=== PATIENT | male | born 1945 | race Caucasian/White ===

== ENCOUNTER 2019-02-15 10:54 | Inpatient (IN) | payer MEDICARE, OTHER ==
[2019-02-15] VITALS (29 sets, daily range): BP systolic 104–172; BP diastolic 51–97
[~2019-02-15] VITALS: Ht 177.8 cm; Wt 83.1 kg
[2019-02-15 11:18] LABS: CLARITY,URINE CLEAR (Clear); COLOR,URINE STRAW (Yellow); GLUCOSE, URINE NEGATIVE (Neg); KETONES,URINE NEGATIVE (Neg); LEUKOCYTE ESTERASE ,URINE NEGATIVE (Neg); NITRITES, URINE NEGATIVE (Neg); OCCULT BLOOD,URINE TRACE-INTACT (Neg); PH,URINE 7.5 (4.8-8.0); PROTEIN,URINE 30 mg/dl (Neg); UROBILINOGEN,URINE 0.2 E.U/dL (0.2-1.0)
[2019-02-15 11:21] LABS: UA COLLECTION TYPE VOIDED
--- NOTE | 2019-02-15 11:21 | NUR ---
PT RETURNS FROM CT. STROKE NURSE WAITING, SAW THE PT BRIEFLY BEFORE HE WENT TO CT.
[2019-02-15 11:28] LABS: EOSINOPHILS # (AUTO) 0.2 X10'3 (0-0.9); NEUTROPHILS # (AUTO) 4.7 X10'3 (1.8-7.7)
[2019-02-15 11:30] LABS: ALANINE AMINOTRANSFERASE 34 U/L (12-78); ALBUMIN 4.5 G/DL (3.4-5.0); ALBUMIN/GLOBULIN RATIO 1.1 (1.1-1.5); ALKALINE PHOSPHATASE 133 IU/L (46-116); ANION GAP 11 (8-16); ASPARTATE AMINO TRANSFERASE 25 U/L (10-37); BILIRUBIN,TOTAL 0.7 MG/DL (0.1-1.0); BLOOD UREA NITROGEN 18 MG/DL (7-18); BUN/CREATININE RATIO 15.1 (5.4-32.0); CALCIUM 9.1 MG/DL (8.5-10.1); CHLORIDE 101 MMOL/L (99-107); CREATININE 1.19 MG/DL (0.60-1.10); GLUCOSE 147 MG/DL (70-104); MAGNESIUM 1.9 MG/DL (1.5-2.4); PHOSPHORUS 2.1 MG/DL (2.3-4.5); POTASSIUM 3.4 MMOL/L (3.5-5.1); SODIUM 140 MMOL/L (135-145); TOTAL CARBON DIOXIDE 27.9 MMOL/L (24-32); TOTAL PROTEIN 8.6 G/DL (6.4-8.2); eGFR 60 ML/MIN
[2019-02-15 11:33] LABS: HEMATOCRIT 52.7 % (42.0-52.0); HEMOGLOBIN 18.6 g/dl (14.0-17.9); MEAN CORPUSCULAR VOLUME 91.5 FL (78-98); RED BLOOD COUNT 5.75 X10'6 (4.70-6.10)
[2019-02-15 11:34] LABS: BASOPHILS % (AUTO) 0.6 % (0-1); EOSINOPHILS % (AUTO) 2.6 % (0-6); LYMPHOCYTES # (AUTO) 2.5 X10'3 (1.1-4.8); LYMPHOCYTES % (AUTO) 31.7 % (21-51); MEAN CORPUSCULAR HEMOGLOBIN 32.4 PG (27.0-31.0); MEAN CORPUSCULAR HGB CONC 35.4 g/dL (33.0-36.5); MEAN PLATELET VOLUME 8.6 FL (7.4-10.4); MONOCYTES # (AUTO) 0.5 X10'3 (0-0.9); MONOCYTES % (AUTO) 5.8 % (2-12); NEUTROPHILS % (AUTO) 59.3 % (42-75); RED CELL DISTRIBUTION WIDTH 12.9 % (11.5-14.5)
[2019-02-15] MEDS ORDERED: aspirin 325mg tablet PO ONE (11:35)
[2019-02-15 11:37] LABS: SQUAMOUS EPITHELIAL CELL,UR FEW /LPF (FEW)
[2019-02-15 11:38] LABS: BACTERIA,URINE FEW /HPF (Neg)
[2019-02-15 11:39] LABS: RBC,URINE 0-2 /HPF (0-2); WBC,URINE 0-4 /HPF (0-4)
[2019-02-15] MEDS ORDERED: iohexol 350MG/ML 100ml bottle IV ONE (11:58)
--- NOTE | 2019-02-15 12:00 | NUR ---
STROKE NURSE AT BEDSIDE RUNNING TPA AND DOCUMENTING VS.
[2019-02-15 12:18] LABS: TOTAL CELLS COUNTED 200
[2019-02-15 12:19] LABS: BASOPHILS % (MANUAL) 0 % (0-1)
[2019-02-15 12:20] LABS: PLATELET ESTIMATE NORMAL
[2019-02-15] MEDS ORDERED: normal saline 1000ml 1,000 ML IV ONE (13:10)
[2019-02-15] MEDS ORDERED: niCARDipine-NS 40mg/200ml IVPB 200 ML IV PRN (13:11)
[2019-02-15] MEDS ORDERED: AMLO10TA13 PO (13:19)
[2019-02-15] MEDS ORDERED: ASPI-611 PO (13:26)
[2019-02-15] MEDS ORDERED: OMEP-50 PO (13:27)
[2019-02-15] MEDS ORDERED: LEVO75TA7 PO (13:34)
[2019-02-15] MEDS ORDERED: METO50TA16 PO (13:34)
[2019-02-15] MEDS ORDERED: CITA20TA28 PO (13:34)
[2019-02-15] MEDS ORDERED: VALS320T17 PO (13:34)
[2019-02-15] MEDS ORDERED: CLOP75TA35 PO (13:34)
[2019-02-15] MEDS ORDERED: OXYC-511 PO (13:34)
[2019-02-15] MEDS ORDERED: FLUT16SP20 NAS (13:34)
[2019-02-15] MEDS ORDERED: POTA10CA44 PO (13:34)
--- NOTE | 2019-02-15 14:16 | NUR ---
STROKE: Responded to stroke alert at 1100. On first assessment, immediately prior to CT scan, patient is A/O and has minimal impairment to the fine motor function of the right hand. Denies alteration in sensation. No drift. Following CT scan, at 1120, neuro exam reveals right arm drfit to bed after 5 seconds, flaccid R wrist, and numbness to the upper arm. slight droop to right mouth. Decision to give TPA following exam with Teleneurology and ER MD, risks and benefits reveiwed with pt. Bolus given with 2 RN check at 1148. Improvement in stroke symptoms noted after approximately 30 minutes. See TPA/neuro flow sheets.
[2019-02-15] MEDS ORDERED: ondansetron/PF 4mg/2ml inj IV ONE (14:25)
[2019-02-15] MEDS ORDERED: morphine 4 MG/ML inj SYRINge IV ONE (14:25)
[2019-02-15] MEDS: K, MAG and/or Phos replacement - Verify level? MC SCH (17:10)
[2019-02-15] MEDS ORDERED: magnesium hydroxide 30ml (MOM) UD suspension PO PRN (17:10)
[2019-02-15] MEDS: fluticasone nasal spray 16GM bottle NS SCH (17:10)
[2019-02-15] MEDS ORDERED: ondansetron/PF 4mg/2ml inj IV PRN (17:10)
[2019-02-15] MEDS ORDERED: acetaminophen 325mg tablet PO PRN ×2 (17:10)
[2019-02-15] MEDS ORDERED: morphine 4 MG/ML inj SYRINge IV PRN (17:10)
[2019-02-15] MEDS: clopidogrel 75mg tablet PO SCH (17:10)
[2019-02-15] MEDS ORDERED: potassium Cl 20 mEq SR tablet PO PRN (17:10)
[2019-02-15] MEDS ORDERED: morphine 2 MG/ML inj. syringe IV PRN (17:10)
[2019-02-15 17:14] LABS: PLATELET COUNT 213 X10'3 (140-440)
--- NOTE | 2019-02-15 17:52 | NUR ---
pt arrived to floor via gurney. pt oriented to room and call light. VS 168/102 HR 99. restarted pt on cardene at 5mg/hr. will continue to monitor.
--- NOTE | 2019-02-15 18:20 | NUR ---
Patient in room CICU 2011. I have received report and had the opportunity to ask questions and assume patient care.
[2019-02-15] MEDS: oxyCODONE/APAP 10/325mg tablet PO PRN (18:25)
[2019-02-15] MEDS: normal saline 1000ml 1,000 ML IV SCH (18:28)
--- NOTE | 2019-02-15 18:41 | NUR ---
Patient report given, questions answered & plan of care reviewed with Loretta REED.
--- NOTE | 2019-02-15 19:08 | NUR ---
pt has plavix ordered for a give at 1710. pt takes plavix at home and home medications were continued. pt received TPA earlier in the day and is at high risk for bleeding. SAMUEL Boyle called for medication clarification. [place] ordered to hold plavix for tonight and resume medication tomorrow.
[2019-02-15] MEDS: citalopram 20mg tablet PO SCH (19:42)
[2019-02-15] MEDS: metoprolol tartrate 50mg tablet PO SCH (19:42)
--- NOTE | 2019-02-15 23:00 | NUR ---
PT REQUESTED ATIVAN BEFORE PLACING THE CPAP ON HIM. ATIVAN ADMINISTERED.
[2019-02-15] MEDS: LORazepam 0.5 MG tablet PO PRN (23:23)
[2019-02-16] VITALS (33 sets, daily range): BP systolic 119–165; BP diastolic 55–99
--- NOTE | 2019-02-16 00:15 | NUR ---
PT 12 HR TROPONIN CAME BACK AT 9.47. NOTIFIED. 12 LEAD EKG ORDERED, TROPONIN ORDERED FOR 0300, SAID HE WOULD ORDER A CARDIOLOGY CONSULT
--- NOTE | 2019-02-16 00:36 | NUR ---
EKG COMPLETE. EKG READ BY MD ORTIZ IN ER. NOTED FLAT T WAVES IN LEADS III, V3,V4 THE. SAMUEL NOGUEIRA NOTIFIED Addendum: 02/16/19 at 0039 by Loretta Tadeo RN EKG COMPLETE. EKG READ BY MD ORTIZ IN ER. NOTED FLAT T WAVES IN LEADS III, V3,V4 WHICH WERE NOT PRESENT COMPARED TO THE PREVIOUS EKG. SAMUEL NOGUEIRA NOTIFIED
[2019-02-16 05:49] LABS: PARTIAL THROMBOPLASTIN TIME 26 SECONDS (22-32)
[2019-02-16 05:50] LABS: BASOPHILS % (AUTO) 0.3 % (0-1); EOSINOPHILS # (AUTO) 0.1 X10'3 (0-0.9); EOSINOPHILS % (AUTO) 0.7 % (0-6); HEMATOCRIT 46.7 % (42.0-52.0); HEMOGLOBIN 16.5 g/dl (14.0-17.9); LYMPHOCYTES # (AUTO) 2.1 X10'3 (1.1-4.8); LYMPHOCYTES % (AUTO) 20.3 % (21-51); MEAN CORPUSCULAR HEMOGLOBIN 32.3 PG (27.0-31.0); MEAN CORPUSCULAR HGB CONC 35.3 g/dL (33.0-36.5); MEAN CORPUSCULAR VOLUME 91.4 FL (78-98); MEAN PLATELET VOLUME 8.9 FL (7.4-10.4); MONOCYTES # (AUTO) 0.9 X10'3 (0-0.9); MONOCYTES % (AUTO) 8.9 % (2-12); NEUTROPHILS # (AUTO) 7.4 X10'3 (1.8-7.7); NEUTROPHILS % (AUTO) 69.8 % (42-75); PLATELET COUNT 201 X10'3 (140-440); RED CELL DISTRIBUTION WIDTH 13.2 % (11.5-14.5); WHITE BLOOD COUNT 10.6 X10'3 (4.5-11.0)
[2019-02-16 05:53] LABS: ALANINE AMINOTRANSFERASE 36 U/L (12-78); ALBUMIN 3.7 G/DL (3.4-5.0); ALBUMIN/GLOBULIN RATIO 1.1 (1.1-1.5); ALKALINE PHOSPHATASE 106 IU/L (46-116); ANION GAP 7 (8-16); ASPARTATE AMINO TRANSFERASE 80 U/L (10-37); BILIRUBIN,TOTAL 0.7 MG/DL (0.1-1.0); BLOOD UREA NITROGEN 24 MG/DL (7-18); BUN/CREATININE RATIO 20.3 (5.4-32.0); CALCIUM 8.9 MG/DL (8.5-10.1); CHLORIDE 104 MMOL/L (99-107); CREATININE 1.18 MG/DL (0.60-1.10); GLUCOSE 115 MG/DL (70-104); POTASSIUM 3.5 MMOL/L (3.5-5.1); SODIUM 139 MMOL/L (135-145); TOTAL CARBON DIOXIDE 28.4 MMOL/L (24-32); TOTAL PROTEIN 7.2 G/DL (6.4-8.2); eGFR 61 ML/MIN
[2019-02-16 05:57] LABS: LDL CHOLESTEROL 112 MG/DL (50-100)
[2019-02-16 06:03] LABS: TROPONIN I 11.56 NG/ML (0.0-0.05)
--- NOTE | 2019-02-16 06:16 | NUR ---
Patient in room CICU 2011. I have received report from Loretta REED and had the opportunity to ask questions and assume patient care.
[2019-02-16] MEDS: normal saline 1000ml 1,000 ML IV SCH ×2 (07:53→20:52)
[2019-02-16] MEDS: pantoprazole 40 MG vial IV SCH (07:53)
[2019-02-16] MEDS: oxyCODONE/APAP 10/325mg tablet PO PRN ×2 (07:54→17:15)
[2019-02-16] MEDS: levoTHYROXINE 75mcg tablet PO SCH (07:54)
[2019-02-16] MEDS: metoprolol tartrate 50mg tablet PO SCH ×2 (07:54→20:52)
[2019-02-16] MEDS: clopidogrel 75mg tablet PO SCH (08:00)
[2019-02-16] MEDS: K, MAG and/or Phos replacement - Verify level? MC SCH (08:00)
[2019-02-16] MEDS: fluticasone nasal spray 16GM bottle NS SCH (08:12)
[2019-02-16] MEDS: citalopram 20mg tablet PO SCH (08:12)
[2019-02-16] MEDS ORDERED: FLU VACC QS2019-20 36MOS UP/PF 60 MCG/0.5 ML SYRINGE IMVAC ONE (10:00)
[2019-02-16] MEDS ORDERED: pneumococcal 23-VAL P-sac vacc 25 mcg/0.5ml vial IMVAC ONE (10:00)
[2019-02-16] MEDS ORDERED: NORepinephrine 8mg/ 250ml NS 250 ML IV SCH (11:10)
--- NOTE | 2019-02-16 12:36 | NUR ---
Discussed patient with Dr Leonardo, neuroassessment is good, maintaining bp 120 to 130 troponins elevated,cardiology consult today.will do head ct today and do follow up neurotelemedicine today.
[2019-02-16] MEDS: LORazepam 0.5 MG tablet PO PRN (17:18)
--- NOTE | 2019-02-16 18:25 | NUR ---
Patient in room CICU 2011. I have received report and had the opportunity to ask questions and assume patient care.
--- NOTE | 2019-02-16 19:06 | NUR ---
Problems reprioritized. Patient report given, questions answered & plan of care reviewed with Loretta REED.
--- NOTE | 2019-02-16 19:26 | NUR ---
specialist cotton weigher contacted for 24 hour post tpa follow up consult. paperwork faxed to specialist cotton weigher.
[2019-02-17] VITALS (19 sets, daily range): BP systolic 115–163; BP diastolic 63–102
--- NOTE | 2019-02-17 00:50 | NUR ---
specialist parking regulation enforcement officer evaluated pt. report placed in chart
--- NOTE | 2019-02-17 03:43 | NUR ---
pt blood pressure jumped from 150 systolic to 180-190 systolic. blood pressure cuff changed and blood pressure taken on both arms. systolic bp remains 108-190. ilya simmons notified. order received for 10 mg hydralazine q6h prn high bp. will continue to monitor.
[2019-02-17] MEDS ORDERED: hydrALAZINE 20mg/ml inj. IV PRN (03:45)
[2019-02-17 05:50] LABS: EOSINOPHILS # (AUTO) 0.3 X10'3 (0-0.9); HEMOGLOBIN 16.3 g/dl (14.0-17.9); MONOCYTES # (AUTO) 0.8 X10'3 (0-0.9); NEUTROPHILS # (AUTO) 6.3 X10'3 (1.8-7.7); WHITE BLOOD COUNT 9.5 X10'3 (4.5-11.0)
[2019-02-17 05:51] LABS: PARTIAL THROMBOPLASTIN TIME 26 SECONDS (22-32)
[2019-02-17 05:52] LABS: BASOPHILS % (AUTO) 0.3 % (0-1); EOSINOPHILS % (AUTO) 3.3 % (0-6); HEMATOCRIT 46.4 % (42.0-52.0); LYMPHOCYTES % (AUTO) 21.5 % (21-51); MEAN CORPUSCULAR HEMOGLOBIN 32.3 PG (27.0-31.0); MEAN CORPUSCULAR HGB CONC 35.1 g/dL (33.0-36.5); MEAN CORPUSCULAR VOLUME 92.1 FL (78-98); MEAN PLATELET VOLUME 8.7 FL (7.4-10.4); MONOCYTES % (AUTO) 8.2 % (2-12); NEUTROPHILS % (AUTO) 66.7 % (42-75); PLATELET COUNT 181 X10'3 (140-440); RED BLOOD COUNT 5.04 X10'6 (4.70-6.10); RED CELL DISTRIBUTION WIDTH 13.1 % (11.5-14.5)
[2019-02-17 05:56] LABS: ALANINE AMINOTRANSFERASE 41 U/L (12-78); ALBUMIN 3.6 G/DL (3.4-5.0); ALBUMIN/GLOBULIN RATIO 1.1 (1.1-1.5); ALKALINE PHOSPHATASE 106 IU/L (46-116); ANION GAP 6 (8-16); ASPARTATE AMINO TRANSFERASE 85 U/L (10-37); BILIRUBIN,TOTAL 0.4 MG/DL (0.1-1.0); BLOOD UREA NITROGEN 19 MG/DL (7-18); BUN/CREATININE RATIO 17.1 (5.4-32.0); CALCIUM 8.9 MG/DL (8.5-10.1); CHLORIDE 106 MMOL/L (99-107); CREATININE 1.11 MG/DL (0.60-1.10); GLUCOSE 119 MG/DL (70-104); POTASSIUM 3.6 MMOL/L (3.5-5.1); SODIUM 142 MMOL/L (135-145); TOTAL CARBON DIOXIDE 30.5 MMOL/L (24-32); TOTAL PROTEIN 6.9 G/DL (6.4-8.2); eGFR 65 ML/MIN
[2019-02-17 06:08] LABS: TROPONIN I 9.96 NG/ML (0.0-0.05)
--- NOTE | 2019-02-17 06:17 | NUR ---
Patient in room CICU 2011. I have received report from Loretta REED and had the opportunity to ask questions and assume patient care.
[2019-02-17] MEDS: pantoprazole 40 MG vial IV SCH (07:57)
[2019-02-17] MEDS: levoTHYROXINE 75mcg tablet PO SCH (07:58)
[2019-02-17] MEDS: K, MAG and/or Phos replacement - Verify level? MC SCH (08:00)
[2019-02-17] MEDS: citalopram 20mg tablet PO SCH (08:02)
[2019-02-17] MEDS: clopidogrel 75mg tablet PO SCH (08:02)
[2019-02-17] MEDS: aspirin 81mg tab.chew PO SCH (08:02)
[2019-02-17] MEDS: metoprolol tartrate 50mg tablet PO SCH ×2 (08:02→20:49)
[2019-02-17] MEDS: oxyCODONE/APAP 10/325mg tablet PO PRN ×2 (08:04→22:24)
[2019-02-17] MEDS: fluticasone nasal spray 16GM bottle NS SCH (08:07)
[2019-02-17] MEDS: normal saline 1000ml 1,000 ML IV SCH (11:26)
[2019-02-17] MEDS: atorvastatin 20mg tablet PO SCH (11:32)
[2019-02-17] MEDS: LORazepam 0.5 MG tablet PO PRN (14:30)
--- NOTE | 2019-02-17 14:42 | NUR ---
Patient in room CICU 2011. I have received report from Cherri REED and had the opportunity to ask questions and assume patient care.
--- NOTE | 2019-02-17 14:43 | NUR ---
patient will head to MRI then up to the ortho/neuro floor per Cherri REED.
--- NOTE | 2019-02-17 14:45 | NUR ---
pt report called to Ashwin REED; all questions answered.
--- NOTE | 2019-02-17 15:00 | NUR ---
pt to MRI and then to Neuro floor.
--- NOTE | 2019-02-17 15:21 | NUR ---
Problems reprioritized. Patient report given, questions answered & plan of care reviewed with Jermaine REED.
--- NOTE | 2019-02-17 15:22 | NUR ---
Patient in room CICU 2011. I have received report from BRIANNA Christopher and had the opportunity to ask questions and assume patient care.
--- NOTE | 2019-02-17 16:00 | NUR ---
pt MRI to room 4011.
--- NOTE | 2019-02-17 18:23 | NUR ---
Problems reprioritized. Patient report given, questions answered & plan of care reviewed with BRIANNA Mayorga.
[2019-02-18] MEDS: normal saline 1000ml 1,000 ML IV SCH ×3 (01:34→13:52)
[2019-02-18 02:00] VITALS: BP 165/100
[2019-02-18 03:38] LABS: BASOPHILS % (AUTO) 0.4 % (0-1); EOSINOPHILS # (AUTO) 0.4 X10'3 (0-0.9); EOSINOPHILS % (AUTO) 4.2 % (0-6); HEMOGLOBIN 15.6 g/dl (14.0-17.9); LYMPHOCYTES # (AUTO) 2.3 X10'3 (1.1-4.8); LYMPHOCYTES % (AUTO) 24.2 % (21-51); MEAN CORPUSCULAR HEMOGLOBIN 31.9 PG (27.0-31.0); MEAN CORPUSCULAR HGB CONC 34.8 g/dL (33.0-36.5); MEAN CORPUSCULAR VOLUME 91.8 FL (78-98); MEAN PLATELET VOLUME 8.4 FL (7.4-10.4); MONOCYTES # (AUTO) 0.7 X10'3 (0-0.9); MONOCYTES % (AUTO) 7.1 % (2-12); NEUTROPHILS # (AUTO) 6.2 X10'3 (1.8-7.7); NEUTROPHILS % (AUTO) 64.1 % (42-75); PLATELET COUNT 190 X10'3 (140-440); RED CELL DISTRIBUTION WIDTH 12.9 % (11.5-14.5); WHITE BLOOD COUNT 9.6 X10'3 (4.5-11.0)
[2019-02-18 03:48] LABS: PARTIAL THROMBOPLASTIN TIME 26 SECONDS (22-32)
[2019-02-18 03:59] LABS: ALANINE AMINOTRANSFERASE 37 U/L (12-78); ALBUMIN 3.4 G/DL (3.4-5.0); ALKALINE PHOSPHATASE 99 IU/L (46-116); ANION GAP 5 (8-16); ASPARTATE AMINO TRANSFERASE 57 U/L (10-37); BILIRUBIN,TOTAL 0.5 MG/DL (0.1-1.0); BLOOD UREA NITROGEN 19 MG/DL (7-18); BUN/CREATININE RATIO 17.4 (5.4-32.0); CALCIUM 8.3 MG/DL (8.5-10.1); CHLORIDE 106 MMOL/L (99-107); CREATININE 1.09 MG/DL (0.60-1.10); GLUCOSE 115 MG/DL (70-104); POTASSIUM 3.4 MMOL/L (3.5-5.1); SODIUM 142 MMOL/L (135-145); TOTAL CARBON DIOXIDE 30.6 MMOL/L (24-32); TOTAL PROTEIN 6.9 G/DL (6.4-8.2); eGFR 66 ML/MIN
[2019-02-18 04:01] LABS: TROPONIN I 7.17 NG/ML (0.0-0.05)
[2019-02-18 06:00] VITALS: BP 153/97
--- NOTE | 2019-02-18 06:05 | NUR ---
Patient in room ORTHO 4011. I have received report from HERMAN REED and had the opportunity to ask questions and assume patient care.
[2019-02-18] MEDS: K, MAG and/or Phos replacement - Verify level? MC SCH (07:51)
[2019-02-18] MEDS: atorvastatin 20mg tablet PO SCH (07:59)
[2019-02-18] MEDS: clopidogrel 75mg tablet PO SCH (07:59)
[2019-02-18] MEDS: pantoprazole 40mg Tablet.DR PO SCH (07:59)
[2019-02-18] MEDS: levoTHYROXINE 75mcg tablet PO SCH (07:59)
[2019-02-18] MEDS: aspirin 81mg tab.chew PO SCH (07:59)
[2019-02-18] MEDS: potassium Cl 20 mEq SR tablet PO PRN ×3 (08:00→17:21)
[2019-02-18] MEDS: citalopram 20mg tablet PO SCH (08:00)
[2019-02-18] MEDS: fluticasone nasal spray 16GM bottle NS SCH (08:00)
[2019-02-18] MEDS: metoprolol tartrate 50mg tablet PO SCH ×2 (08:09→20:48)
[2019-02-18] MEDS: oxyCODONE/APAP 10/325mg tablet PO PRN ×2 (09:07→20:48)
[2019-02-18 10:05] VITALS: BP 143/83
--- NOTE | 2019-02-18 17:47 | NUR ---
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
[2019-02-18 18:00] VITALS: BP 148/75
--- NOTE | 2019-02-18 18:05 | NUR ---
Problems reprioritized. Patient report given, questions answered & plan of care reviewed with GUIDO REED.
--- NOTE | 2019-02-18 18:15 | NUR ---
Patient in room ORTHO 4011. I have received report from BRIANNA Krishnamurthy and had the opportunity to ask questions and assume patient care.
[2019-02-18 20:54] VITALS: BP 143/91
[2019-02-18 22:00] VITALS: BP 161/110
[2019-02-19] VITALS (7 sets, daily range): BP systolic 134–188; BP diastolic 76–100
[2019-02-19] MEDS: normal saline 1000ml 1,000 ML IV SCH (03:10)
[2019-02-19 06:31] LABS: BASOPHILS % (AUTO) 0.4 % (0-1); EOSINOPHILS # (AUTO) 0.4 X10'3 (0-0.9); EOSINOPHILS % (AUTO) 4.7 % (0-6); HEMATOCRIT 44.9 % (42.0-52.0); HEMOGLOBIN 15.9 g/dl (14.0-17.9); LYMPHOCYTES # (AUTO) 2.3 X10'3 (1.1-4.8); MEAN CORPUSCULAR HEMOGLOBIN 32.5 PG (27.0-31.0); MEAN CORPUSCULAR HGB CONC 35.3 g/dL (33.0-36.5); MEAN CORPUSCULAR VOLUME 92.1 FL (78-98); MEAN PLATELET VOLUME 8.5 FL (7.4-10.4); MONOCYTES # (AUTO) 0.6 X10'3 (0-0.9); MONOCYTES % (AUTO) 7.9 % (2-12); NEUTROPHILS # (AUTO) 4.9 X10'3 (1.8-7.7); PLATELET COUNT 183 X10'3 (140-440); RED BLOOD COUNT 4.87 X10'6 (4.70-6.10); RED CELL DISTRIBUTION WIDTH 12.8 % (11.5-14.5); WHITE BLOOD COUNT 8.3 X10'3 (4.5-11.0)
[2019-02-19 06:38] LABS: PARTIAL THROMBOPLASTIN TIME 26 SECONDS (22-32)
--- NOTE | 2019-02-19 06:48 | NUR ---
Problems reprioritized. Patient report given, questions answered & plan of care reviewed with BRIANNA Dubois.
[2019-02-19 06:51] LABS: ALANINE AMINOTRANSFERASE 35 U/L (12-78); ALBUMIN 3.5 G/DL (3.4-5.0); ALKALINE PHOSPHATASE 108 IU/L (46-116); ANION GAP 5 (8-16); ASPARTATE AMINO TRANSFERASE 35 U/L (10-37); BILIRUBIN,TOTAL 0.5 MG/DL (0.1-1.0); BLOOD UREA NITROGEN 20 MG/DL (7-18); BUN/CREATININE RATIO 17.5 (5.4-32.0); CALCIUM 8.8 MG/DL (8.5-10.1); CHLORIDE 107 MMOL/L (99-107); CREATININE 1.14 MG/DL (0.60-1.10); GLUCOSE 104 MG/DL (70-104); POTASSIUM 4.2 MMOL/L (3.5-5.1); SODIUM 143 MMOL/L (135-145); TOTAL CARBON DIOXIDE 31.5 MMOL/L (24-32); TOTAL PROTEIN 6.9 G/DL (6.4-8.2); eGFR 63 ML/MIN
[2019-02-19] MEDS: K, MAG and/or Phos replacement - Verify level? MC SCH (08:00)
[2019-02-19] MEDS: fluticasone nasal spray 16GM bottle NS SCH (08:00)
[2019-02-19] MEDS: atorvastatin 20mg tablet PO SCH (09:30)
[2019-02-19] MEDS: clopidogrel 75mg tablet PO SCH (09:30)
[2019-02-19] MEDS: oxyCODONE/APAP 10/325mg tablet PO PRN ×2 (09:30→17:48)
[2019-02-19] MEDS: levoTHYROXINE 75mcg tablet PO SCH (09:30)
[2019-02-19] MEDS: aspirin 81mg tab.chew PO SCH (09:30)
[2019-02-19] MEDS: pantoprazole 40mg Tablet.DR PO SCH (09:30)
[2019-02-19] MEDS: citalopram 20mg tablet PO SCH (09:30)
[2019-02-19] MEDS: metoprolol tartrate 50mg tablet PO SCH ×2 (09:32→19:46)
--- NOTE | 2019-02-19 17:42 | NUR ---
gave prn hydralazine for manual bp 180/90.
--- NOTE | 2019-02-19 18:30 | NUR ---
Patient in room ORTHO 4011. I have received report from YAQUELIN REED and had the opportunity to ask questions and assume patient care.
[2019-02-19] MEDS ORDERED: nitroGLYCERIN 0.4mg SUBLingual tab SL PRN (19:00)
[2019-02-20] VITALS (12 sets, daily range): BP systolic 103–158; BP diastolic 57–95
[2019-02-20] MEDS: oxyCODONE/APAP 10/325mg tablet PO PRN (01:01)
[2019-02-20 05:18] LABS: BASOPHILS # (AUTO) 0.1 X10'3 (0-0.2); BASOPHILS % (AUTO) 1.1 % (0-1); EOSINOPHILS # (AUTO) 0.3 X10'3 (0-0.9); EOSINOPHILS % (AUTO) 3.9 % (0-6); HEMATOCRIT 44.3 % (42.0-52.0); HEMOGLOBIN 15.8 g/dl (14.0-17.9); LYMPHOCYTES # (AUTO) 2.5 X10'3 (1.1-4.8); LYMPHOCYTES % (AUTO) 29.4 % (21-51); MEAN CORPUSCULAR HEMOGLOBIN 32.4 PG (27.0-31.0); MEAN CORPUSCULAR HGB CONC 35.7 g/dL (33.0-36.5); MEAN CORPUSCULAR VOLUME 90.8 FL (78-98); MEAN PLATELET VOLUME 8.9 FL (7.4-10.4); MONOCYTES # (AUTO) 0.6 X10'3 (0-0.9); MONOCYTES % (AUTO) 6.8 % (2-12); NEUTROPHILS % (AUTO) 58.8 % (42-75); PLATELET COUNT 203 X10'3 (140-440); RED BLOOD COUNT 4.88 X10'6 (4.70-6.10); WHITE BLOOD COUNT 8.5 X10'3 (4.5-11.0)
[2019-02-20 05:28] LABS: PARTIAL THROMBOPLASTIN TIME 26 SECONDS (22-32)
[2019-02-20 05:31] LABS: ALANINE AMINOTRANSFERASE 33 U/L (12-78); ALBUMIN 3.5 G/DL (3.4-5.0); ALKALINE PHOSPHATASE 118 IU/L (46-116); ANION GAP 8 (8-16); ASPARTATE AMINO TRANSFERASE 23 U/L (10-37); BILIRUBIN,TOTAL 0.4 MG/DL (0.1-1.0); CALCIUM 8.7 MG/DL (8.5-10.1); CHLORIDE 107 MMOL/L (99-107); CREATININE 1.08 MG/DL (0.60-1.10); GLUCOSE 114 MG/DL (70-104); POTASSIUM 3.6 MMOL/L (3.5-5.1); SODIUM 144 MMOL/L (135-145); eGFR 67 ML/MIN
[2019-02-20 05:41] LABS: BLOOD UREA NITROGEN 21 MG/DL (7-18); BUN/CREATININE RATIO 19.4 (5.4-32.0)
--- NOTE | 2019-02-20 06:30 | NUR ---
Patient in room ORTHO 4011A. I have received report from Ami REED and had the opportunity to ask questions and assume patient care.
--- NOTE | 2019-02-20 06:32 | NUR ---
Problems reprioritized. Patient report given, questions answered & plan of care reviewed with ALIZE REED.
--- NOTE | 2019-02-20 07:00 | NUR ---
Patient in room MED 315. I have received report from BRIANNA Hawkins and had the opportunity to ask questions and assume patient care.
--- NOTE | 2019-02-20 07:03 | NUR ---
Report called to Elvia REED on [facility]. Patient to transfer to room 315. Report given, all questions answered
--- NOTE | 2019-02-20 07:20 | NUR ---
Patient transferred to room 315. All belongings sent with patient, report given to Elvia REED. Tele monitor returned to tele office.
--- NOTE | 2019-02-20 07:25 | NUR ---
Pt arrived on [facility] in , all personal belongings are with pt.
[2019-02-20 07:49] LABS: PLATELET FUNCTION (ADP) 82 SECONDS (63-104)
[2019-02-20] MEDS: K, MAG and/or Phos replacement - Verify level? MC SCH (08:00)
[2019-02-20] MEDS: fluticasone nasal spray 16GM bottle NS SCH (08:00)
[2019-02-20] MEDS: citalopram 20mg tablet PO SCH (08:12)
[2019-02-20] MEDS: pantoprazole 40mg Tablet.DR PO SCH (08:12)
[2019-02-20] MEDS: metoprolol tartrate 50mg tablet PO SCH (08:13)
[2019-02-20] MEDS: levoTHYROXINE 75mcg tablet PO SCH (08:13)
[2019-02-20] MEDS: clopidogrel 75mg tablet PO SCH (08:13)
[2019-02-20] MEDS: aspirin 81mg tab.chew PO SCH (08:14)
[2019-02-20] MEDS ORDERED: midazolam 2 mg/2 ml injection ONE (10:39)
[2019-02-20] MEDS ORDERED: iohexol 350MG/ML 100ml bottle IV ONE (10:39)
[2019-02-20] MEDS ORDERED: fentaNYL/PF 50MCG/1 ML 2ML syringe ONE (10:39)
[2019-02-20] MEDS ORDERED: LIDOcaine 1% (10mg/ml)w/preservative injection 20ml MDV ONE (10:39)
[2019-02-20] MEDS ORDERED: iohexol 350 MG/ML 50ML vial IV ONE (10:39)
[2019-02-20] MEDS: normal saline 1000ml 1,000 ML IV SCH ×2 (10:48→20:25)
--- NOTE | 2019-02-20 10:50 | NUR ---
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 No noted stress.
[2019-02-20] MEDS ORDERED: nitroGLYCERIN-Tridil 50MG/D5W 250 ML IV ONE (11:17)
--- NOTE | 2019-02-20 11:29 | NUR ---
Patient admitted with severe HTN, is now s/p heart cath. Has heart healthy diet with mechanical soft chop all texture. Eating well, average PO intake is 75-100% of meals and is meeting nutrition needs. No nutrition concerns at this time. Will continue to follow. Recommend: 1. continue heart healthy, mechanical soft chopped all diet 2. weight per rx Addendum: 02/20/19 at [address] Amended: Links added.
[2019-02-20] MEDS ORDERED: hydrALAZINE 20mg/ml inj. IV ONE (11:31)
[2019-02-20] MEDS ORDERED: atorvastatin 20mg tablet PO SCH (11:57)
--- NOTE | 2019-02-20 12:00 | NUR ---
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 R fem site is clean, dry and intact, pt is advised to remain bedrest till 1800
[2019-02-20] MEDS ORDERED: hydrALAZINE 20mg/ml inj. IV PRN (12:30)
[2019-02-20] MEDS ORDERED: OXAZEpam 15mg capsule PO PRN (12:35)
[2019-02-20] MEDS ORDERED: HYDROcodone/acetaminophen 5mg/325mg tablet PO PRN (12:35)
[2019-02-20] MEDS ORDERED: proCHLORperazine 10 MG/2 ml inj IV PRN (12:35)
--- NOTE | 2019-02-20 12:52 | NUR ---
Problems reprioritized. Patient report given, questions answered & plan of care reviewed with BRIANNA Hoover.
[2019-02-20] MEDS: amLODIPine 5mg tablet PO SCH ×2 (13:30→20:18)
[2019-02-20] MEDS: HYDROcodone/acetaminophen 10/325mg tab PO PRN ×2 (13:33→20:19)
[2019-02-20] MEDS: isosorbide dinitrate 5mg tablet PO SCH ×2 (15:40→20:18)
--- NOTE | 2019-02-20 18:30 | NUR ---
Patient in room MED 315. I have received report from Batsheva REED and had the opportunity to ask questions and assume patient care.
--- NOTE | 2019-02-20 18:34 | NUR ---
Problems reprioritized. Patient report given, questions answered & plan of care reviewed with Cesar RN.
[2019-02-20] MEDS: metoprolol succinate 25mg (24-HOUR) SR. Tablet PO SCH (20:18)
[2019-02-21 02:00] VITALS: BP 129/67
[2019-02-21 06:00] VITALS: BP 111/77
[2019-02-21 06:22] LABS: PARTIAL THROMBOPLASTIN TIME 26 SECONDS (22-32)
[2019-02-21 06:40] LABS: ALANINE AMINOTRANSFERASE 28 U/L (12-78); ALBUMIN 3.3 G/DL (3.4-5.0); ALKALINE PHOSPHATASE 100 IU/L (46-116); ANION GAP 9 (8-16); ASPARTATE AMINO TRANSFERASE 18 U/L (10-37); BILIRUBIN,TOTAL 0.6 MG/DL (0.1-1.0); BLOOD UREA NITROGEN 23 MG/DL (7-18); BUN/CREATININE RATIO 22.8 (5.4-32.0); CALCIUM 8.5 MG/DL (8.5-10.1); CHLORIDE 107 MMOL/L (99-107); CREATININE 1.01 MG/DL (0.60-1.10); GLUCOSE 116 MG/DL (70-104); POTASSIUM 3.3 MMOL/L (3.5-5.1); SODIUM 143 MMOL/L (135-145); TOTAL PROTEIN 6.6 G/DL (6.4-8.2); eGFR 73 ML/MIN
[2019-02-21 06:58] LABS: BASOPHILS % (AUTO) 0.2 % (0-1); EOSINOPHILS # (AUTO) 0.3 X10'3 (0-0.9); EOSINOPHILS % (AUTO) 3.7 % (0-6); HEMATOCRIT 42.3 % (42.0-52.0); HEMOGLOBIN 14.7 g/dl (14.0-17.9); LYMPHOCYTES # (AUTO) 1.9 X10'3 (1.1-4.8); MEAN CORPUSCULAR HEMOGLOBIN 32.2 PG (27.0-31.0); MEAN CORPUSCULAR HGB CONC 34.8 g/dL (33.0-36.5); MEAN CORPUSCULAR VOLUME 92.3 FL (78-98); MEAN PLATELET VOLUME 9.1 FL (7.4-10.4); MONOCYTES # (AUTO) 0.7 X10'3 (0-0.9); MONOCYTES % (AUTO) 7.4 % (2-12); NEUTROPHILS # (AUTO) 6.4 X10'3 (1.8-7.7); NEUTROPHILS % (AUTO) 68.7 % (42-75); PLATELET COUNT 199 X10'3 (140-440); RED BLOOD COUNT 4.58 X10'6 (4.70-6.10); RED CELL DISTRIBUTION WIDTH 12.8 % (11.5-14.5); WHITE BLOOD COUNT 9.3 X10'3 (4.5-11.0)
[2019-02-21] MEDS: fluticasone nasal spray 16GM bottle NS SCH (07:30)
[2019-02-21] MEDS: pantoprazole 40mg Tablet.DR PO SCH (07:31)
[2019-02-21] MEDS: metoprolol succinate 25mg (24-HOUR) SR. Tablet PO SCH (07:32)
[2019-02-21] MEDS: clopidogrel 75mg tablet PO SCH (07:32)
[2019-02-21] MEDS: amLODIPine 5mg tablet PO SCH (07:32)
[2019-02-21] MEDS: isosorbide dinitrate 5mg tablet PO SCH (07:33)
[2019-02-21] MEDS: levoTHYROXINE 75mcg tablet PO SCH (07:33)
[2019-02-21] MEDS: citalopram 20mg tablet PO SCH (07:33)
[2019-02-21] MEDS: potassium Cl 20 mEq SR tablet PO PRN ×3 (07:34→16:40)
[2019-02-21] MEDS: aspirin 81mg tab.chew PO SCH (07:34)
[2019-02-21] MEDS: K, MAG and/or Phos replacement - Verify level? MC SCH (08:00)
[2019-02-21] MEDS: HYDROcodone/acetaminophen 10/325mg tab PO PRN (09:48)
[2019-02-21 11:00] VITALS: BP 127/82
--- NOTE | 2019-02-21 14:45 | NUR ---
PATIENT AMBULATED WITH STANDBY ASSIST 200 FEET ASKED PATIENT IF HE WOULD PREFER A WALKER, HE SAYS NO, AND NURSING OBSERVES NO ISSUES WITH BALANCE OR COORDINATION DURING ENTIRE WALK.
[2019-02-21 15:00] VITALS: BP 143/79
[2019-02-21] MEDS ORDERED: ISOS5TAB3 PO (16:12)
[2019-02-21] MEDS ORDERED: NITR0.4T51 SL (16:12)
[2019-02-21] MEDS ORDERED: TICA60TA PO (16:12)
[2019-02-21] MEDS ORDERED: ATOR20TA66 PO (16:12)
[2019-02-21] MEDS ORDERED: METO-395 PO (16:14)
--- NOTE | 2019-02-21 17:16 | NUR ---
pt discharged, IVs removed, tele removed, all belongings collected, pt brought down to waiting vehicle and daughter via wheelchair with PCT
== END 2019-02-21 17:12 | disposition home or self-care (01) | DRG 64 ==
LOC: ER 10:54 → ED HOLD 17:12 → CICU 2S 17:55 → ORTHO 4S 02-17 15:51 → MED 3N 02-20 07:30
PROVIDERS: ADMIT Internal Medicine Critical Care Medicine; ATTEND Internal Medicine Critical Care Medicine
PROC: BW291ZZ Computerized Tomography (CT Scan) of Head and Neck using Low Osmolar Contrast (ICD-10-PCS; 2019-02-15)
PROC: 4A023N7 Measurement of Cardiac Sampling and Pressure, Left Heart, Percutaneous Approach (ICD-10-PCS; principal; 2019-02-20)
PROC: B2111ZZ Fluoroscopy of Multiple Coronary Arteries using Low Osmolar Contrast (ICD-10-PCS; 2019-02-20)
PROC: B3101ZZ Fluoroscopy of Thoracic Aorta using Low Osmolar Contrast (ICD-10-PCS; 2019-02-20)
PROC: B2151ZZ Fluoroscopy of Left Heart using Low Osmolar Contrast (ICD-10-PCS; 2019-02-20)
PROC: B41F1ZZ Fluoroscopy of Right Lower Extremity Arteries using Low Osmolar Contrast (ICD-10-PCS; 2019-02-20)
DX: I63.9 Cerebral infarction, unspecified (principal); I21.4 Non-ST elevation (NSTEMI) myocardial infarction; E78.00 Pure hypercholesterolemia, unspecified; G83.21 Monoplegia of upper limb affecting right dominant side; I25.10 Atherosclerotic heart disease of native coronary artery without angina pectoris; I71.2 Thoracic aortic aneurysm, without rupture; R29.6 Repeated falls; G89.29 Other chronic pain; M54.9 Dorsalgia, unspecified; I10 Essential (primary) hypertension; Z79.899 Other long term (current) drug therapy; Z85.47 Personal history of malignant neoplasm of testis; Z88.2 Allergy status to sulfonamides; Z88.1 Allergy status to other antibiotic agents; Z88.8 Allergy status to other drugs, medicaments and biological substances
CPT/HCPCS: 36415; 70450; 70496; 70498; 70544; 70551; 71045; 80053; 81001; 82948; 83721; 83735; 84100; 84443; 84484; 85025; 85576; 85610; 85730; 87081; 93005; 93306; 93458; 93880; 94660; 94760; 96374; 96375; 97110; 97116; 97162; 99152; 99153; 99291; A4620; A6258; C1760; C1769; C9113; G0378; GO378; J0360; J1644; J2001; J2250; J2270; J2405; J2997; J3010; J3490; J7030; Q9967

== ENCOUNTER 2020-04-07 19:54 | Emergency (ER) | payer BC, MEDICARE ==
[~2020-04-07] VITALS: Ht 170.2 cm; Wt 77.3 kg
[~2020-04-07 19:54] MED LIST: ASPI-611 PO; ATOR20TA66 PO; CITA20TA28 PO; FLUT16SP20 NAS; ISOS5TAB3 PO; LEVO75TA7 PO; METO-395 PO; NITR0.4T51 SL; OMEP-50 PO; OXYC1TAB17 PO; POTA10CA44 PO; TICA60TA PO; VALS320T17 PO
--- NOTE | 2020-04-07 19:56 | NUR ---
PATIENTS SON ALLOWED TO ACCOMPANY PATIENT DUE TO HEARING
[2020-04-07 20:08] VITALS: BP 142/78
[2020-04-07] MEDS ORDERED: AMOX-422 PO (20:14)
== END 2020-04-07 22:38 | disposition home or self-care (01) ==
LOC: ER 19:55
DX: H66.91 Otitis media, unspecified, right ear (principal); H92.01 Otalgia, right ear; R51.9 Headache, unspecified; R09.81 Nasal congestion; E78.00 Pure hypercholesterolemia, unspecified; G89.29 Other chronic pain; Z98.890 Other specified postprocedural states; Z88.2 Allergy status to sulfonamides; Z88.1 Allergy status to other antibiotic agents; Z79.82 Long term (current) use of aspirin; Z79.899 Other long term (current) drug therapy
CPT/HCPCS: 99283

== ENCOUNTER 2021-09-26 09:52 | Day surgery (SDC) | payer BC ==
[2021-09-26] VITALS (10 sets, daily range): BP systolic 142–166; BP diastolic 79–105
[~2021-09-26] VITALS: Ht 170.2 cm; Wt 81.1 kg
[~2021-09-26 09:52] MED LIST changes: -OMEP-50 PO; +OMEP20CA16 PO
[2021-09-26] MEDS ORDERED: normal saline 1,000 ML IV SCH (10:10)
[2021-09-26] MEDS ORDERED: LORazepam 0.5 MG tablet PO PRN (10:10)
[2021-09-26] MEDS ORDERED: diphenhydrAMINE 25mg capsule PO PRN (10:10)
[2021-09-26] MEDS ORDERED: CHOL100025 PO (10:44)
[2021-09-26] MEDS ORDERED: LEVO75TA98 PO (10:44)
[2021-09-26] MEDS ORDERED: isosorbide dinitrate PO (10:44)
[2021-09-26] MEDS ORDERED: ACET-2971 PO (10:44)
[2021-09-26] MEDS ORDERED: ATOR-2 PO (10:44)
[2021-09-26] MEDS ORDERED: DULO30CA52 PO (10:44)
[2021-09-26] MEDS ORDERED: METO50TA16 PO (10:44)
[2021-09-26] MEDS ORDERED: MULT-1180 PO (10:44)
[2021-09-26] MEDS ORDERED: NITR0.4T48 SL (10:44)
[2021-09-26] MEDS ORDERED: OMEG-79 PO (10:44)
[2021-09-26] MEDS ORDERED: ALEN70TA60 PO (10:44)
[2021-09-26] MEDS ORDERED: MELO-100 PO (10:44)
[2021-09-26] MEDS ORDERED: CARV-50 PO (10:44)
[2021-09-26] MEDS ORDERED: METH2.5T55 PO (10:44)
[2021-09-26] MEDS ORDERED: OMEP20TA23 PO (10:44)
[2021-09-26] MEDS ORDERED: FOLI1TAB27 PO (10:44)
[2021-09-26 10:53] LABS: BASOPHILS % (AUTO) 0.2 % (0-1); EOSINOPHILS # (AUTO) 0.6 X10'3 (0-0.9); EOSINOPHILS % (AUTO) 9.3 % (0-6); HEMATOCRIT 43.9 % (42.0-52.0); HEMOGLOBIN 15.2 g/dl (14.0-17.9); LYMPHOCYTES # (AUTO) 1.2 X10'3 (1.1-4.8); LYMPHOCYTES % (AUTO) 20.1 % (21-51); MEAN CORPUSCULAR HEMOGLOBIN 32.1 PG (27.0-31.0); MEAN CORPUSCULAR HGB CONC 34.6 g/dL (33.0-36.5); MEAN CORPUSCULAR VOLUME 92.8 FL (78-98); MONOCYTES # (AUTO) 0.6 X10'3 (0-0.9); NEUTROPHILS # (AUTO) 3.6 X10'3 (1.8-7.7); NEUTROPHILS % (AUTO) 60.4 % (42-75); PLATELET COUNT 217 X10'3 (140-440); RED BLOOD COUNT 4.73 X10'6 (4.70-6.10); RED CELL DISTRIBUTION WIDTH 13.8 % (11.5-14.5)
[2021-09-26 11:03] LABS: ANION GAP 11 (8-16); BLOOD UREA NITROGEN 15 MG/DL (7-18); BUN/CREATININE RATIO 16.5 (5.4-32.0); CALCIUM 9.2 MG/DL (8.5-10.1); CHLORIDE 106 MMOL/L (99-107); CREATININE 0.91 MG/DL (0.60-1.10); GLUCOSE 138 MG/DL (70-104); POTASSIUM 3.9 MMOL/L (3.5-5.1); SODIUM 146 MMOL/L (135-145); TOTAL CARBON DIOXIDE 28.7 MMOL/L (24-32); eGFR 81 ML/MIN
[2021-09-26 11:06] LABS: APTT 26 SECONDS (22-32)
[2021-09-26] MEDS ORDERED: nitroGLYCERIN-Tridil 50MG/D5W 250 ML IV ONE (11:10)
[2021-09-26] MEDS ORDERED: fentaNYL/PF 50MCG/1 ML 2ML syringe ONE (11:11)
[2021-09-26] MEDS ORDERED: LIDOcaine 1%/PF 5ML 10 MG/ML VIAL ONE ×3 (11:11→12:15)
[2021-09-26] MEDS ORDERED: verapamil 2.5 mg/ml inj IV ONE (11:11)
[2021-09-26] MEDS ORDERED: iohexol 350MG/ML 100ml bottle IV ONE ×2 (11:11→12:35)
[2021-09-26] MEDS ORDERED: midazolam 1 mg/ML 2ml injection ONE (11:11)
[2021-09-26] MEDS ORDERED: heparin 1,000unit/ml 10ml vial 20 ML ONE (11:11)
[2021-09-26] MEDS ORDERED: acetaminophen 325mg tablet PO PRN (13:35)
[2021-09-26] MEDS ORDERED: normal saline 1000ml 1,000 ML IV SCH (13:45)
[2021-09-26] MEDS ORDERED: HYDROcodone/acetaminophen 5mg/325mg tablet PO PRN (13:45)
[2021-09-26] MEDS ORDERED: HYDROcodone/acetaminophen 10/325mg tab PO PRN (13:45)
== END 2021-09-26 17:55 | disposition home or self-care (01) ==
LOC: SSTAY O 09:52
PROVIDERS: ATTEND Internal Medicine Cardiovascular Disease
DX: I25.10 Atherosclerotic heart disease of native coronary artery without angina pectoris (principal); E78.5 Hyperlipidemia, unspecified; I10 Essential (primary) hypertension; G47.30 Sleep apnea, unspecified; M06.9 Rheumatoid arthritis, unspecified; I73.9 Peripheral vascular disease, unspecified; Z79.01 Long term (current) use of anticoagulants; Z79.899 Other long term (current) drug therapy; Z98.890 Other specified postprocedural states
CPT/HCPCS: 36415; 76937; 80048; 85025; 85610; 85730; 93005; 93458; 99152; 99153; C1760; C1769; C1894; J1644; J2250; J3010; J3490; J7030; Q0163; Q9967; A4620; A5120; A6258; A6402